=== PATIENT | male | born 1990 | race Caucasian/White ===

== ENCOUNTER 2019-08-31 12:19 | Emergency (ER) | payer MEDICAID ==
[~2019-08-31] VITALS: Ht 172.7 cm; Wt 70.0 kg
[2019-08-31 14:52] VITALS: BP 120/79
== END 2019-08-31 14:45 | disposition home or self-care (01) ==
LOC: ER 12:19
DX: T40.4X1A Poisoning by other synthetic narcotics, accidental (unintentional), initial encounter (principal); X58.XXXA Exposure to other specified factors, initial encounter; F11.10 Opioid abuse, uncomplicated
CPT/HCPCS: 99283